=== PATIENT | male | born 1985 | race Caucasian/White ===

== ENCOUNTER 2023-10-18 14:22 | Emergency (ER) | payer OTHER ==
[~2023-10-18] VITALS: Ht 177.8 cm; Wt 81.8 kg
[2023-10-18] MEDS ORDERED: IBUP-1456 PO (17:34)
[2023-10-18] MEDS ORDERED: CYCL-839 PO (17:34)
[2023-10-18] MEDS ORDERED: PRED20TA2 PO (17:34)
[2023-10-18] MEDS: KETOROLAC TROMETH 60MG/2ML VIAL IM ONE (17:47)
[2023-10-18] MEDS: methylPREDNISolone SOD SUCC 125 MG/2 ML VL IM ONE (17:47)
[2023-10-18 17:57] VITALS: PULSE 68; RESP 18; TEMP 99.1; O2SAT 98
[2023-10-18 18:59] VITALS: BP 123/80; PULSE 81; RESP 18; O2SAT 100
== END 2023-10-18 18:59 | disposition home or self-care (01) ==
LOC: ER 14:22
DX: S39.012A Strain of muscle, fascia and tendon of lower back, initial encounter (principal); M54.42 Lumbago with sciatica, left side; R51.9 Headache, unspecified; V43.52XA Car driver injured in collision with other type car in traffic accident, initial encounter; Y93.89 Activity, other specified; Y92.488 Other paved roadways as the place of occurrence of the external cause; Y99.9 Unspecified external cause status
CPT/HCPCS: 70450; 72100; 96372; 99285; J1885; J2919